=== PATIENT | male | born 1990 | race Caucasian/White ===

== ENCOUNTER 2019-03-11 12:20 | Day surgery (SDC) | payer OTHER ==
[~2019-03-11 12:20] MED LIST: CLINDAMYCIN 600 MG/D5W RTU 600 MG/50 ML RTUPB IV PRN
[2019-03-11] MEDS ORDERED: FENTANYL CITRATE INJ/PF 100 MCG/2 ML AMPUL ONE (12:51)
[2019-03-11] MEDS ORDERED: MIDAZOLAM 2 MG/2 ML INJ ONE ×2 (12:51→14:32)
[2019-03-11] MEDS ORDERED: PROPOFOL INJ 200 MG/20 ML VIAL IV ONE ×2 (12:51→18:12)
[2019-03-11] MEDS ORDERED: CLINDAMYCIN 600 MG/D5W RTU 600 MG/50 ML RTUPB IV ONE (13:28)
[2019-03-11] MEDS ORDERED: LIDOCAINE 1%/EPINEPHRINE INJ 20 ML VIAL ONE (14:27)
[2019-03-11] MEDS ORDERED: MEPERIDINE HCL/PF INJ 25 MG/1 ML DISP.SYRIN IV PRN (15:15)
[2019-03-11] MEDS ORDERED: PROMETHAZINE HCL INJ 25 MG/1 ML VIAL IV PRN (15:15)
[2019-03-11] MEDS ORDERED: MORPHINE SULFATE 10 MG/ML INJ IV PRN ×2 (15:15→18:12)
[2019-03-11] MEDS ORDERED: DIPHENHYDRAMINE HCL 50 MG/ML VIAL IV PRN (15:15)
[2019-03-11] MEDS ORDERED: FENTANYL CITRATE INJ/PF 100 MCG/2 ML AMPUL IV PRN ×3 (15:15)
[2019-03-11] MEDS ORDERED: OXYCODONE-ACETAMINOPHEN 5-325 MG TABLET PO PRN (18:12)
[2019-03-11] MEDS ORDERED: ONDANSETRON HCL INJ/PF 4 MG/2 ML SDV IV PRN (18:12)
--- NOTE | 2019-03-11 18:13 | Discharge Summary ---
Discharge Summary (SDC) - Discharge Final Diagnosis: Right small finger zone II flexor tendon laceration Date of Surgery: 03/11/19 Discharge Date: 03/11/19 Condition: Good Treatment or Instructions: Schedule Follow Up w/ Dr. Richard Samuels @ [facility] to be seen in 10-14 days or as scheduled [place]: [place]: [place]: Ice and elevate Keep splint clean/dry/intact, do not remove. If your fingers become numb please unwrap the [place] wrap but leave the splint in place, if the sensation does not return within 30 minutes please return to the emergency department. Begin occupational therapy as directed Please use ibuprofen (Motrin or Advil) 600-800 mg every 8 hours as needed for pain or fever DO NOT TAKE w/ TORADOL may use once TORADOL complete. You may also use acetaminophen (Tylenol) 1000 mg every 4-6 hours as needed for pain or fever. Please be aware that many medications contain acetaminophen, do not exceed a total of 1000 mg of acetaminophen every 6 hours. If ibuprofen and acetaminophen are not sufficient for your pain you may take the Percocet/[place]. Please be aware that the Percocet/[place] does contain Tylenol. Stool softener of choice when on pain medication. USE OF [id number] IBUPROFEN: Ibuprofen (Advil, Nuprin, Medipren, Motrin IB) is a medication for fever and pain control. In addition, it has anti- inflammatory effects which may be beneficial, especially in the treatment of injuries. It's best to take ibuprofen with food. Persons with ulcer disease or allergy to aspirin should notify their physician of this before taking ibuprofen. Ibuprofen can be given every four to six hours, for a total of four doses daily. Age Pain or fever dose Antiinflammatory dose 6-8 yr 200 mg (1 tab) 200 mg (1 tab) 9-11 yr 200 mg (1 tab) 200-400 mg (1-2 tab) 11-14 yr 200-400 mg (1-2 tab) 400 mg (2 tab) 15-adult 400 mg (2 tab) 600 mg (3 tab) ORAL NARCOTIC MEDICATION: You have been given a prescription for pain control. This medication is a narcotic. It's best taken with food, as nausea can result if taken on an empty stomach. Don't operate machinery or drive within six hours of taking this medication. Do not combine this medicine with alcohol, or with any medication which can cause sedation (such as cold tablets or sleeping pills) unless you get permission from the physician. Narcotics tend to cause constipation. If possible, drink plenty of fluids and eat a diet high in fiber and fruits. Please be aware that prescription narcotics also have the potential for abuse. People become addicted to these medications because of the general sense of wellbeing that they induce. This feeling along with a significant reduction in tension, anxiety, and aggression provides a stimulating seductive quality to these drugs. Once your pain is under control, we encourage you to discard your unused narcotics. Prescriptions: Ketorolac Tromethamine [Toradol 10 mg Tablet] 10 mg PO Q8HP PRN #12 tablet PRN Reason: Oxycodone HCl/Acetaminophen [Percocet 5-325 mg Tablet] 1 tab PO Q6 PRN #25 tab PRN Reason: Discharge Diet: As Tolerated Respiratory Treatments at Home: Deep Breathing/Coughing, Incentive Spirometer Discharge Activity: No Lifting Over 10 Pounds, No Lifting/Push/Pulling Report the Following to Your Physician Immediately: Fever over 101 Degrees, Unusual Bleeding, Redness, Swelling, Warmth, Increased Soreness
--- NOTE | 2019-03-11 18:20 | Operative Report ---
Operative Report DATE OF SURGERY: 03/11/19 PREOPERATIVE DIAGNOSIS: Right small finger zone II flexor tendon laceration POSTOPERATIVE DIAGNOSIS: Right small finger zone II flexor tendon laceration. Radial digital nerve laceration OPERATION: Repair Right small finger zone II FDP Laceration. Repair radial digital nerve with placement of Axogen nerve wrap SURGEON: MONROE STAHL ANESTHESIA: LMAC COMPLICATIONS: None ESTIMATED BLOOD LOSS: Minimal PROCEDURE: Indication for above procedure: 28-year-old male who sustained inadvertent transverse laceration on the PIP joint of small finger. After laceration patient was unable to bend his DIP or PIP joint. Was then sent to my office at which point we discussed findings on examination and decision was made to proceed with operative intervention. Postoperative expectations, outcomes and importance of rehabilitation were explained patient verbalized understanding consented for surgical procedure. Procedure In Detail: Patient was seen and evaluated in the preoperative holding area. The RIGHT upper extremity was initialized and marked. Patient received 2g of Ancef IV for bacterial prophylaxis. 10 cc of 1% lidocaine with epinephrine was injected along the distal palmar crease. Patient was taken back to the operative room where transferred to the operative table. A surgical team debriefing was performed ensuring all instrumentation was available, the surgical procedure was discussed with possible concerns reviewed. An additional 5 cc of 1% lidocaine with epinephrine was injected 2 cc at the MP joint/PIP joint 1 cc of the DIP joint. The upper extremity was prepped with chlorhexidine and alcohol and draped in a sterile fashion. A timeout was done identifying correct patient, procedure and extremity everyone in attendance agree with this and verbalized no concerns. Skin incision was made proximally and distally with a midline incision along the DIP joint bunt dissection was performed ulnar neurovascular bundle was identified and retracted. Radial neurovascular bundle was identified and there was partial laceration at the level of patient's original trauma. Dissection was then performed proximally and distally the distal aspect of the FDP was identified. The proximal aspect was not isolated thus incision was extended proximal to the MP joint flexion crease. Small window was made within the A1 leia to identify the proximal aspect of the FDP. The FDP was then retrieved carefully shadowing deep to the A2 leia and cruciform leia. Distal aspect of the A4 leia was vented and FDP secured with 22-gauge needles. FDS was also identified however fairly underdeveloped tendon possibly indicative of minimally functioning FDS thus decision was made to proceed with isolated FDP repair. Initial repair was performed with cruciform stitch utilizing 3-0 Supramid however adequate fixation was not achieved and there was gapping when patient was awoken to attempt active range of motion thus decision was made to proceed with 8 strand repair utilizing a modified Christianson suture with 4 oh fiber loop x2 at completion patient made full composite fist there is no evidence of tendon gapping there was residual MP joint flexion contracture of approximately 20 degrees secondary to mild static contracture from chronicity. The radial digital nerve was then isolated under loupe magnification a tensionless epineural repair was performed to the partial laceration with 9-0 nylon suture. Patient then made a full composite fist and full passive extension there was no evidence of gapping at the nerve repair site A 2 mm x 20 mm Axogen nerve protector was then secured with multiple interrupted 8-0 nylon suture. Wound was copiously irrigated with normal saline. Any peripheral veins were coagulated with bipolar cautery. Skin was reapproximated with interrupted 4-0 nylon suture. Wound was dressed Xeroform 4 x 4's and Xeroform. Patient placed in a dorsal resting splint with the wrist at 20 degrees of extension MP joints at 60 degrees of flexion IP joints at neutral Sponge counts, instrument counts, needle counts counts were correct. Patient wa s then awoken from anesthesia. Transferred from the operating room table to the operating room stretcher. There was no intraoperative complications patient tolerated procedure well stable to PACU. Postoperative plan: Patient will follow-up with occupational therapy will be fitted for a thermoplastic splint and begin therapy as per Valentino's protocol zone II flexor tendon repair.
[2019-03-11 19:46] VITALS: BP 125/73
== END 2019-03-11 19:45 | disposition home or self-care (01) ==
LOC: OROUT 12:20
PROVIDERS: ATTEND Orthopaedic Surgery
DX: S66.126A Laceration of flexor muscle, fascia and tendon of right little finger at wrist and hand level, initial encounter (principal); S61.216A Laceration without foreign body of right little finger without damage to nail, initial encounter; S64.496A Injury of digital nerve of right little finger, initial encounter; W26.0XXA Contact with knife, initial encounter
CPT/HCPCS: 01810; 26356; 64912; C9353; J2250; J3490; J2704; 1810; J3010